=== PATIENT | female | born 1990 | race American Indian/Alaskan Native ===

== ENCOUNTER 2017-08-26 | Emergency (ER) | payer SELFPAY ==
[2017-08-26 00:38] LABS: Basophils # (Auto) 0.1 K/mm3 (0.0-0.1); Basophils % (Auto) 0.6 % (0.0-1.8); Eosinophils % (Auto) 0.1 % (0.0-4.3); Hematocrit 38.1 % (30.3-42.9); Hemoglobin 12.7 gm/dl (10.1-14.3); Lymphocytes # (Auto) 2.6 K/mm3 (1.2-5.4); Lymphocytes % (Auto) 16.3 % (13.4-35.0); Mean Corpuscular HGB Conc 33 % (30-34); Mean Corpuscular Hemoglobin 30 pg (28-32); Mean Corpuscular Volume 91 fl (79-97); Monocytes # (Auto) 0.9 K/mm3 (0.0-0.8); Monocytes % (Auto) 5.8 % (0.0-7.3); Platelet Count 299 K/mm3 (140-440); Red Blood Count 4.17 M/mm3 (3.65-5.03); Red Cell Distribution Width 13.3 % (13.2-15.2)
[2017-08-26 00:53] LABS: Alanine Aminotransferase 9 units/L (7-56); Albumin 4.3 g/dL (3.9-5); BUN/Creatinine Ratio 6; Blood Urea Nitrogen 5 mg/dL (7-17); Calcium 9.1 mg/dL (8.4-10.2); Hemolysis Index 0
[2017-08-26] MEDS ORDERED: CATAPRES ONE (03:15)
[2017-08-26] MEDS ORDERED: CATAPRES PO ONE (03:22)
[2017-08-26 04:16] LABS: HCG Qualitative,Urine Negative (Negative)
[2017-08-26 04:18] LABS: Bilirubin,Urine NEG (Negative); Blood,Urine SM (Negative); Color,Urine Straw (Yellow); Protein,Urine <15 mg/dL mg/dL (Negative); Urobilinogen,Urine < 2.0 mg/dL (<2.0); WBC,Urine < 1.0 /HPF (0.0-6.0)
--- NOTE | 2017-08-26 05:22 | Cat Scan Report ---
FINAL REPORT EXAM: CT HEAD/BRAIN WO CON HISTORY: headache TECHNIQUE: CT imaging acquired through the head without intravenous contrast. Transaxial reformations are provided. PRIORS: None. FINDINGS: The ventricles, cisterns and sulci are normal. No intraparenchymal or extra-axial mass, hemorrhage, or mass effect. Rivero and white-matter differentiation is normal. Normal spherical shape of the globes. Paranasal sinuses and mastoid air cells are clear. No skull or facial fracture visualized. IMPRESSION: No acute intracranial abnormality.
--- NOTE | 2017-08-26 06:34 | Emergency Department Report ---
ED General Adult HPI - General Chief complaint: Headache Stated complaint: HEAD,EYE PAIN Time Seen by Provider: 08/26/17 06:32 Source: patient Mode of arrival: Ambulatory Limitations: No Limitations - History of Present Illness Initial comments: Patient states that she's had a global headache for 3 days. She stated that it had an acute onset although she does not recall what she was doing at the time. At this time she reports it's 2 out of 10 although it was 10 out of 10 when she arrived. Prior to my arrival she was given clonidine 0.2 for a blood pressure 176/116. Her resulting blood pressures have been normotensive. She denies neck pain or stiffness, photophobia, nausea, vomiting, neurological change, fever or chills. The patient also complains of periumbilical abdominal pain which is poorly characterized and non-radiating. It is intermittent in nature. She states that she is here for both problems. She denies any prior emergency department visit for either complaint. She appears to be complaining of generalized body aches. However she is a very poor historian and not particularly interested in answering questions in general. -: days(s) Location: head, abdomen Severity scale (0 -10): 10 Quality: aching Consistency: intermittent Improves with: none Worsens with: none Associated Symptoms: other (abdominal pain) Treatments Prior to Arrival: NSAID - Related Data Previous Rx's Medication Instructions Recorded Last Taken Type Butalb/Acetamin/Caff 50-325-40 1 tab PO Q6HR PRN #10 tab 08/26/17 Unknown Rx [Fioricet] Allergies Allergy/AdvReac Type Severity Reaction Status Date / Time No Known Allergies Allergy Unverified 08/26/17 00:12 ED Review of Systems ROS: Stated complaint: HEAD,EYE PAIN Other details as noted in HPI Constitutional: denies: chills, fever Eyes: denies: eye pain, eye discharge, vision change ENT: other (denied sore throat). denies: ear pain, throat pain Respiratory: denies: cough, shortness of breath, wheezing Cardiovascular: denies: chest pain, palpitations Endocrine: no symptoms reported Gastrointestinal: abdominal pain. denies: nausea, vomiting, diarrhea, constipation, hematemesis, melena, hematochezia Genitourinary: denies: urgency, dysuria, discharge Musculoskeletal: denies: back pain, joint swelling, arthralgia Skin: other (noted a bruise on the right periorbital area.). denies: rash, lesions Neurological: headache. denies: weakness, numbness, paresthesias, confusion, abnormal gait, vertigo Psychiatric: denies: anxiety, depression Hematological/Lymphatic: denies: easy bleeding, easy bruising ED Past Medical Hx - Past Medical History Previous Medical History?: No - Surgical History Past Surgical History?: No - Social History Smoking Status: Never Smoker Substance Use Type: None - Medications Home Medications: Home Medications Medication Instructions Recorded Confirmed Last Taken Type Butalb/Acetamin/Caff 50-325-40 1 tab PO Q6HR PRN #10 tab 08/26/17 Unknown Rx [Fioricet] ED Physical Exam - General Limitations: No Limitations General appearance: alert, in no apparent distress - Head Head exam: Present: atraumatic, normocephalic - Eye Eye exam: Present: normal appearance. Absent: scleral icterus - ENT ENT exam: Present: mucous membranes moist. Absent: normal orophraynx (erythema of bilateral anterior Anjel) - Neck Neck exam: Present: normal inspection. Absent: tenderness, meningismus, lymphadenopathy, thyromegaly - Respiratory Respiratory exam: Present: normal lung sounds bilaterally. Absent: respiratory distress - Cardiovascular Cardiovascular Exam: Present: regular rate, normal rhythm. Absent: systolic murmur, diastolic murmur, rubs, gallop - GI/Abdominal GI/Abdominal exam: Present: soft, normal bowel sounds. Absent: distended, tenderness, guarding, rebound, rigid - Extremities Exam Extremities exam: Present: normal inspection, full ROM, normal capillary refill. Absent: tenderness, calf tenderness - Back Exam Back exam: Present: normal inspection. Absent: CVA tenderness (R), CVA tenderness (L), muscle spasm, paraspinal tenderness, vertebral tenderness - Neurological Exam Neurological exam: Present: alert, oriented X3, CN II-XII intact. Absent: motor sensory deficit - Psychiatric Psychiatric exam: Present: normal affect, depressed - Skin Skin exam: Present: warm, dry, intact, normal color, ecchymosis (small ecchymosis of the right supra-ciliary periorbital area). Absent: rash ED Course Vital Signs 08/26/17 08/26/17 08/26/17 00:09 03:09 03:30 Temperature 97.6 F 98.7 F 98.3 F Pulse Rate 109 H 111 H 109 H Respiratory 18 19 Rate Blood Pressure 176/116 192/107 Blood Pressure 155/97 [Right] O2 Sat by Pulse 99 100 Oximetry 08/26/17 08/26/17 05:30 06:16 Temperature Pulse Rate 95 H Respiratory Rate Blood Pressure 145/96 Blood Pressure 122/77 [Right] O2 Sat by Pulse 100 Oximetry - Reevaluation(s) Reevaluation #1: Patient is noted to have an elevated white blood cell count. As such with her persistent headache I have recommended a spinal tap. She refuses this. She states she has been here all night and she does not want any more testing. She has been advised that this test is indicated and I cannot rule out meningitis which obviously is a serious illness sometimes life-threatening. Her mother was present on the spinal tap was recommended. She told her mother she was on willing to undergo this procedure. Therefore she will be discharged. Close follow-up is recommended. Return to the emergency department as desired for further medical screening. 08/26/17 07:03 ED Medical Decision Making - Lab Data Result diagrams: 08/26/17 00:25 08/26/17 00:25 Laboratory Results - last 24 hr 08/26/17 08/26/17 08/26/17 00:25 00:25 00:25 WBC 15.8 H RBC 4.17 Hgb 12.7 Hct 38.1 MCV 91 MCH 30 MCHC 33 RDW 13.3 Plt Count 299 Lymph % (Auto) 16.3 [place] % (Auto) 5.8 Eos % (Auto) 0.1 Baso % (Auto) 0.6 Lymph # 2.6 [place] # 0.9 H Eos # 0.0 Baso # 0.1 Seg Neutrophils % 77.2 H Seg Neutrophils # 12.2 H Sodium 138 Potassium 3.4 L Chloride 95.6 L Carbon Dioxide 26 Anion Gap 20 BUN 5 L Creatinine 0.8 Estimated GFR > 60 BUN/Creatinine Ratio 6 Glucose 134 H Calcium 9.1 Total Bilirubin 0.30 AST 22 ALT 9 Alkaline Phosphatase 83 Total Protein 8.1 Albumin 4.3 Albumin/Globulin Ratio 1.1 HCG, Qual Negative Urine Color Urine Turbidity Urine pH Ur Specific [place] Urine Protein Urine Glucose (UA) Urine Ketones Urine Blood Urine Nitrite Urine Bilirubin Urine Urobilinogen Ur Leukocyte Esterase Urine WBC (Auto) Urine RBC (Auto) U Epithel Cells (Auto) Urine HCG, Qual 08/26/17 08/26/17 Unknown Unknown WBC RBC Hgb Hct MCV MCH MCHC RDW Plt Count Lymph % (Auto) [place] % (Auto) Eos % (Auto) Baso % (Auto) Lymph # [place] # Eos # Baso # Seg Neutrophils % Seg Neutrophils # Sodium Potassium Chloride Carbon Dioxide Anion Gap BUN Creatinine Estimated GFR BUN/Creatinine Ratio Glucose Calcium Total Bilirubin AST ALT Alkaline Phosphatase Total Protein Albumin Albumin/Globulin Ratio HCG, Qual Urine Color Straw Urine Turbidity Clear Urine pH 7.0 Ur Specific [place] 1.006 Urine Protein <15 mg/dl Urine Glucose (UA) Neg Urine Ketones Neg Urine Blood Sm Urine Nitrite Neg Urine Bilirubin Neg Urine Urobilinogen < 2.0 Ur Leukocyte Esterase Neg Urine WBC (Auto) < 1.0 Urine RBC (Auto) 1.0 U Epithel Cells (Auto) 2.0 Urine HCG, Qual Negative - Radiology Data Radiology results: report reviewed interpreted by me: CT NL Critical care attestation.: If time is entered above; I have spent that time in minutes in the direct care of this critically ill patient, excluding procedure time. ED Disposition Clinical Impression: Cephalalgia Qualifiers: Headache type: unspecified Headache chronicity pattern: acute headache Intractability: not intractable Qualified Code(s): R51 - Headache Abdominal pain Qualifiers: Abdominal location: epigastric Qualified Code(s): R10.13 - Epigastric pain Disposition: - TO HOME OR SELFCARE Is pt being admited?: No Does the pt Need Aspirin: No Condition: Stable Instructions: Acute Headache (ED), Abdominal Pain (ED) Additional Instructions: Further evaluation to include a spinal tap was recommended for your complaints of headache. I would recommend close follow-up with her primary care provider. Return to the emergency department should he desire further evaluation. Prescriptions: Butalb/Acetamin/Caff 50-325-40 [Fioricet] 1 tab PO Q6HR PRN #10 tab PRN Reason: Headache Referrals: PRIMARY CAREMD [Primary Care Provider] - 3-5 Days DIANA LU MD [Staff Physician] - 24 Hours [facility] [Provider Group] - 24 Hours Time of Disposition: 07:06
[2017-08-26] MEDS ORDERED: ZOFRAN IV ONE (07:24)
[2017-08-26] MEDS ORDERED: ATIVAN IV ONE (07:24)
[2017-08-26] MEDS ORDERED: MORPHINE IV ONE ×2 (07:24→08:58)
[2017-08-26] MEDS ORDERED: NACL 0.9% 1000 ML 1,000 ML IV ONE (07:34)
[2017-08-26] MEDS ORDERED: MORPHINE ONE ×2 (07:36→08:42)
[2017-08-26 09:18] LABS: Glucose,CSF 73 mg/dL
[2017-08-26 10:01] LABS: Appearance,CSF Clear
[2017-08-26 10:21] VITALS: BP 120/95
[2017-08-26 10:24] LABS: White Blood Cell,CSF 11.3 /mm3 (1-10)
[2017-08-26 10:25] LABS: Red Blood Cell,CSF 182.5 /mm3 (0-0)
[2017-08-26 10:58] LABS: Appearance,CSF Clear; Red Blood Cell,CSF 0 /mm3 (0-0); White Blood Cell,CSF 1 /mm3 (1-10)
[2017-08-26 11:03] LABS: Basophils CSF 0 %; Total Cells Counted 2 /mm3
[2017-08-26] MEDS ORDERED: TORADOL IV ONE (11:03)
[2017-08-26] MEDS ORDERED: TORADOL ONE (11:04)
[2017-08-26 11:37] LABS: Basophils CSF 0 %; Total Cells Counted 0 /mm3
== END 2017-08-26 12:07 | disposition home or self-care (01) ==
LOC: ED
DX: R51 Headache (principal); R10.9 Unspecified abdominal pain
CPT/HCPCS: 36415; 62272; 70450; 80053; 81001; 81025; 82947; 84160; 84703; 85025; 86403; 86592; 87116; 89051; 96361; 96374; 96375; 96376; 99284; J1885; J2060; J2270; J2405; J7030

== ENCOUNTER 2017-08-27 14:42 | Emergency (ER) | payer SELFPAY ==
[2017-08-27] MEDS ORDERED: ATIVAN PO ONE (15:35)
[2017-08-27 15:37] LABS: Blood Urea Nitrogen 3 mg/dL (7-17)
[2017-08-27 15:47] LABS: BUN/Creatinine Ratio 3; Calcium 9.5 mg/dL (8.4-10.2); Hemolysis Index 4
[2017-08-27 16:08] LABS: Basophils # (Auto) 0.1 K/mm3 (0.0-0.1); Basophils % (Auto) 0.4 % (0.0-1.8); Eosinophils % (Auto) 0.1 % (0.0-4.3); Hematocrit 35.2 % (30.3-42.9); Lymphocytes # (Auto) 2.3 K/mm3 (1.2-5.4); Lymphocytes % (Auto) 15.5 % (13.4-35.0); Mean Corpuscular HGB Conc 34 % (30-34); Mean Corpuscular Hemoglobin 31 pg (28-32); Mean Corpuscular Volume 90 fl (79-97); Monocytes # (Auto) 0.9 K/mm3 (0.0-0.8); Platelet Count 297 K/mm3 (140-440); Red Blood Count 3.92 M/mm3 (3.65-5.03); Red Cell Distribution Width 13.6 % (13.2-15.2)
--- NOTE | 2017-08-27 16:13 | Emergency Department Report ---
ED Anxiety HPI - General Chief Complaint: Anxiety Stated Complaint: MENTAL HEALTH Time Seen by Provider: 08/27/17 15:22 Source: patient Mode of arrival: Ambulatory - History of Present Illness Initial Comments: Patient is a 26-year-old -[place] female with a past medical history of bipolar disorder who is presenting with anxiety type symptoms. Patient's mother states that she recently had a separation in her relationship and has been having palpitations and headaches and hyperventilating. Patient's been very anxious and is yelling and screaming in triage "please please please". Patient denies any fevers chills nausea vomiting diarrhea at this time. Patient was here yesterday for tachycardia and a headache had a lumbar puncture that showed negative CSF. - Related Data Home Medications: Previous Rx's Medication Instructions Recorded Last Taken Type Butalb/Acetamin/Caff 50-325-40 1 tab PO Q6HR PRN #10 tab 08/26/17 Unknown Rx [Fioricet] Amlodipine Besylate [Norvasc] 2.5 mg PO DAILY #30 tab 08/27/17 Unknown Rx LORazepam [Ativan] 0.5 mg PO Q6H PRN #10 tablet 08/27/17 Unknown Rx Allergies/Adverse Reactions: Allergies Allergy/AdvReac Type Severity Reaction Status Date / Time No Known Allergies Allergy Unverified 08/26/17 00:12 ED Review of Systems ROS: Stated complaint: MENTAL HEALTH Other details as noted in HPI Comment: All other systems reviewed and negative ED Past Medical Hx - Past Medical History Previous Medical History?: Yes Hx Psychiatric Treatment: Yes (Bipolar, Anxiety) - Surgical History Past Surgical History?: No - Social History Smoking Status: Current Some Day Smoker Substance Use Type: Marijuana - Medications Home Medications: Home Medications Medication Instructions Recorded Confirmed Last Taken Type Butalb/Acetamin/Caff 50-325-40 1 tab PO Q6HR PRN #10 tab 08/26/17 Unknown Rx [Fioricet] Amlodipine Besylate [Norvasc] 2.5 mg PO DAILY #30 tab 08/27/17 Unknown Rx LORazepam [Ativan] 0.5 mg PO Q6H PRN #10 tablet 08/27/17 Unknown Rx ED Physical Exam - General Limitations: No Limitations General appearance: alert, in no apparent distress - Head Head exam: Present: atraumatic, normocephalic - Eye Eye exam: Present: normal appearance - ENT ENT exam: Present: mucous membranes moist - Neck Neck exam: Present: normal inspection - Respiratory Respiratory exam: Present: normal lung sounds bilaterally. Absent: respiratory distress, wheezes, rales, rhonchi - Cardiovascular Cardiovascular Exam: Present: regular rate, normal rhythm. Absent: systolic murmur, diastolic murmur, rubs, gallop - GI/Abdominal GI/Abdominal exam: Present: soft, normal bowel sounds - Extremities Exam Extremities exam: Present: normal inspection - Back Exam Back exam: Present: normal inspection - Neurological Exam Neurological exam: Present: alert, oriented X3 - Psychiatric Psychiatric exam: Present: normal affect, normal mood - Skin Skin exam: Present: warm, dry, intact, normal color. Absent: rash ED Course Vital Signs 08/27/17 14:48 Temperature 99.6 F Pulse Rate 146 H Respiratory 32 H Rate Blood Pressure 147/92 O2 Sat by Pulse 97 Oximetry ED Medical Decision Making - Lab Data Result diagrams: 08/27/17 15:13 08/27/17 15:13 - Medical Decision Making Patient was here yesterday and seen today for anxiety type symptoms. Patient was started on Norvasc 2.5 mg daily yesterday was not start this medication today. Patient's blood pressure is is not critical at this time. Patient was given Ativan and does feel better after taking this medication. Patient will be discharged home with a small prescription for Ativan. Heart rate at the time of discharge was 105 per monitor. Critical care attestation.: If time is entered above; I have spent that time in minutes in the direct care of this critically ill patient, excluding procedure time. ED Disposition Clinical Impression: Anxiety reaction Disposition: DC-01 TO HOME OR SELFCARE Is pt being admited?: No Does the pt Need Aspirin: No Condition: Fair Instructions: Anxiety (ED) Prescriptions: Amlodipine Besylate [Norvasc] 2.5 mg PO DAILY #30 tab LORazepam [Ativan] 0.5 mg PO Q6H PRN #10 tablet PRN Reason: Anxiety Referrals: PRIMARY CARE,MD [Primary Care Provider] - 3-5 Days
[2017-08-27 17:23] VITALS: BP 124/66
[2017-08-27 21:48] LABS: Amphetamine Screen,Urine PRESUMPTIVE NEGATIVE; Benzodiazepines Screen,Urine PRESUMPTIVE NEGATIVE; Cocaine Screen,Urine PRESUMPTIVE NEGATIVE; Methadone Screen,Urine PRESUMPTIVE NEGATIVE; Opiate Screen,Urine PRESUMPTIVE NEGATIVE
[2017-08-27 21:50] LABS: Bacteria,Urine 3+ /HPF (Negative); Bilirubin,Urine NEG (Negative); Blood,Urine LG (Negative); Color,Urine Yellow (Yellow); Mucus,Urine FEW /HPF; Urobilinogen,Urine < 2.0 mg/dL (<2.0)
[2017-08-27 21:52] LABS: Cannabinoid Screen,Urine PRESUMPTIVE POSITIVE
== END 2017-08-27 16:40 | disposition home or self-care (01) ==
LOC: ED 14:42
DX: F31.9 Bipolar disorder, unspecified (principal); F41.9 Anxiety disorder, unspecified; F17.200 Nicotine dependence, unspecified, uncomplicated; F12.10 Cannabis abuse, uncomplicated
CPT/HCPCS: 36415; 80048; 80307; 81001; 84703; 85025; 99283; G0480; 80320